=== PATIENT | male | born 2000 | race Caucasian/White ===

== ENCOUNTER 2022-08-12 21:01 | Emergency (ER) | payer MEDICAID, OTHER ==
[~2022-08-12] VITALS: Ht 175.3 cm; Wt 119.3 kg
[2022-08-12 21:16] VITALS: BP 153/89
--- NOTE | 2022-08-12 21:28 | NUR ---
TO LOBBY FOLLOWING TRIAGE
[2022-08-12] MEDS ORDERED: IBUPROFEN 600 MG TAB PO ONE (22:50)
[2022-08-12] MEDS ORDERED: NAPR-54 PO (23:34)
[2022-08-12 23:37] VITALS: BP 153/89
--- NOTE | 2022-08-12 23:37 | NUR ---
D/C BY . PRESCRIBED ASTON
== END 2022-08-12 23:37 | disposition home or self-care (01) ==
LOC: MED 21:01
DX: S43.401A Unspecified sprain of right shoulder joint, initial encounter (principal); Z79.1 Long term (current) use of non-steroidal anti-inflammatories (NSAID); X58.XXXA Exposure to other specified factors, initial encounter; Y92.89 Other specified places as the place of occurrence of the external cause; Y93.89 Activity, other specified; Y99.8 Other external cause status
CPT/HCPCS: 73030; 99283

== ENCOUNTER 2023-02-12 19:15 | Emergency (ER) | payer OTHER ==
[~2023-02-12] VITALS: Ht 170.2 cm; Wt 122.9 kg
[~2023-02-12 19:15] MED LIST: NAPR-54 PO
[2023-02-12 19:35] VITALS: BP 130/70; PULSE 76; RESP 15; TEMP 97.5; O2SAT 98
[2023-02-12] MEDS ORDERED: DEXAMETHASONE 0.5 MG/5 ML ORASYR PO ONE (22:10)
[2023-02-12] MEDS ORDERED: SUCR1TAB35 PO (22:14)
[2023-02-12] MEDS ORDERED: FAMO-90 PO (22:14)
[2023-02-12] MEDS ORDERED: LIDO100S PO (22:14)
[2023-02-12] MEDS ORDERED: DEXAMETHASONE 10 MG/ML VIAL ONE (22:18)
[2023-02-12 22:29] LABS: FLU A ANTIGEN negative (NEGATIVE); FLU B ANTIGEN negative (NEGATIVE)
[2023-02-12 22:40] VITALS: BP 130/70; PULSE 76; RESP 15; TEMP 97.5; O2SAT 98
== END 2023-02-12 22:40 | disposition home or self-care (01) ==
LOC: MED 19:15
DX: K20.90 Esophagitis, unspecified without bleeding (principal); Z20.822 Contact with and (suspected) exposure to COVID-19; Z79.899 Other long term (current) drug therapy; Z79.1 Long term (current) use of non-steroidal anti-inflammatories (NSAID)
CPT/HCPCS: 72040; 87081; 87426; 87804; 99284; J1100